=== PATIENT | male | born 1945 | race Caucasian/White ===

== ENCOUNTER 2019-11-27 17:14 | Inpatient (IN) ==
[2019-11-27 17:57] LABS: Basophils # 0.1 10*3/uL (0.0-0.2); Basophils % 0.6 % (0.0-0.8); Eosinophils % 0.2 % (0.00-10.9); Hematocrit 37.7 VOL% (42.0-52.0); Hemoglobin 11.7 GM/DL (14.0-18.0); Immature Granulocytes % 0.5 %; Immature Granulocytes Absolute 0.06 #; Mean Corpuscular Volume 84.3 FL (87-102); Mean Platelet Volume 10.8 FL (9.6-12.0); Monocytes % 14.5 % (1.7-12.7); Neutrophils % 66.2 % (38.7-73.9); Platelet Count 231 T/CUMM (130-400); Red Blood Count 4.47 MC/CUMM (3.8-5.5); Red Cell Distribution Width 15.2 % (9.3-17.3)
[2019-11-27 18:18] LABS: Albumin 2.9 G/DL (3.4-5.0); Bilirubin,Total 0.7 MG/DL (0.2-1.0); Calcium 8.7 MG/DL (8.5-10.1); Osmolality,Calculated 275.4 MOS/KG (273-304); Total Protein 8.1 G/DL (6.4-8.3)
[2019-11-27] MEDS ORDERED: FUROSEMIDE 40 MG/4 ML VIAL IV STA (18:31)
[2019-11-27] MEDS ORDERED: PIPERACILLIN/TAZOBACTAM 3,375 MG in SODIUM CHLORIDE 0.9% 100 ML IV STA (18:31)
[2019-11-27] MEDS ORDERED: methylPREDNISolone SOD SUC 125 MG/2 ML VIAL IV STA (18:31)
[2019-11-27] MEDS ORDERED: ONDANSETRON 4 MG/2 ML VIAL IV STA (18:32)
[2019-11-27 18:50] LABS: Ferritin 189.3 ng/ml (26-388); Troponin I < 0.015 NG/ML (0.00-0.045)
[2019-11-27] MEDS ORDERED: ALBUTEROL NEB SOLN 5 MG/ML 20 ML/BOTTLE CONT NEB SCH (19:00)
[2019-11-27 19:16] LABS: Apearance,Urine CLEAR (Clear); Bilirubin,Urine Negative (Negative); Blood, Urine Small mg/dL (Negative); Glucose,Urine (UA) Negative (Negative); Hyaline Casts,Urine 9 /LPF (0-3); Ketones,Urine Negative (Negative); Mucus,Urine Occasional /LPF (Occasional); Nitrite,Urine Negative (Negative); Protein,Urine Negative; RBC,Urine 14 /HPF (0-4); Squamous Epithelial Cell,Urine Occasional /HPF (0-10); Urine Color Yellow (Yellow); Urine Specific Gravity 1.014 (1.001-1.035); Urine Urobilinogen < 2.0 EU/DL (0.2-1.0); WBC,Urine 1 /HPF (0-6)
[2019-11-27] MEDS ORDERED: DOCUSATE SODIUM 100 MG CAPSULE PO PRN (20:53)
[2019-11-27] MEDS ORDERED: ONDANSETRON 4 MG/2 ML VIAL IV PRN (20:53)
[2019-11-27] MEDS ORDERED: ACETAMINOPHEN 325 MG TABLET PO PRN (20:53)
[2019-11-27] MEDS ORDERED: traMADol 50 MG TABLET PO PRN (21:04)
[2019-11-28] MEDS: BACLOFEN 10 MG TABLET PO SCH ×2 (00:28→22:18)
[2019-11-28] MEDS: levETIRAcetam 500 MG TABLET PO SCH ×3 (00:28→22:15)
[2019-11-28] MEDS: ENOXAPARIN 40 MG/0.4 ML SYRINGE SUBCUT SCH ×2 (00:28→22:17)
[2019-11-28] MEDS: DULoxetine 30 MG CAPSULE PO SCH ×3 (00:28→22:16)
[2019-11-28] MEDS: LEVOFLOXACIN INJ 750 MG in PREMIX 1 EACH IV SCH (00:28)
[2019-11-28] MEDS: GABAPENTIN 600 MG TABLET PO SCH ×4 (00:29→22:16)
[2019-11-28] MEDS: ALBUTEROL INHALER 18 GM INH SCH ×4 (00:30→19:30)
[2019-11-28 05:15] LABS: Basophils % 0.2 % (0.0-0.8); Hematocrit 35.3 VOL% (42.0-52.0); Hemoglobin 10.6 GM/DL (14.0-18.0); Immature Granulocytes % 0.2 %; Immature Granulocytes Absolute 0.01 #; Lymphocytes # 0.3 10*3/uL (1.4-4.0); Lymphocytes % 5.5 % (21.2-54.2); Mean Corpuscular Volume 85.1 FL (87-102); Monocytes % 4.1 % (1.7-12.7); Platelet Count 208 T/CUMM (130-400); Red Blood Count 4.15 MC/CUMM (3.8-5.5); Red Cell Distribution Width 14.8 % (9.3-17.3); White Blood Count 6.2 T/CUMM (4-12)
[2019-11-28 05:39] LABS: Calcium 8.6 MG/DL (8.5-10.1)
[2019-11-28] MEDS ORDERED: ERGOCALCIFEROL 50,000 UNIT CAPSULE PO SCH (09:00)
[2019-11-28] MEDS ORDERED: predniSONE 20 MG TABLET PO SCH (09:00)
[2019-11-28] MEDS ORDERED: MONTELUKAST 10 MG TABLET PO SCH (09:00)
[2019-11-28] MEDS: FUROSEMIDE 40 MG TABLET PO SCH (09:53)
[2019-11-28 10:28] LABS: % Iron Saturation 7.2 % (18-50)
[2019-11-28] MEDS: methylPREDNISolone SOD SUC 40 MG/1 ML VIAL IV SCH (16:53)
[2019-11-28] MEDS: MONTELUKAST 10 MG TABLET PO SCH (22:16)
[2019-11-29] MEDS: methylPREDNISolone SOD SUC 40 MG/1 ML VIAL IV SCH ×3 (01:55→16:36)
[2019-11-29] MEDS: ALBUTEROL INHALER 18 GM INH SCH ×4 (01:57→18:53)
[2019-11-29 04:03] LABS: Basophils % 0.1 % (0.0-0.8); Hematocrit 33.1 VOL% (42.0-52.0); Hemoglobin 10.5 GM/DL (14.0-18.0); Immature Granulocytes % 0.4 %; Immature Granulocytes Absolute 0.04 #; Lymphocytes # 0.4 10*3/uL (1.4-4.0); Lymphocytes % 4.3 % (21.2-54.2); Mean Corpuscular HGB Conc 31.7 GM/DL (32-36); Mean Corpuscular Volume 82.1 FL (87-102); Mean Platelet Volume 11.6 FL (9.6-12.0); Neutrophils % 91.2 % (38.7-73.9); Platelet Count 229 T/CUMM (130-400); Red Blood Count 4.03 MC/CUMM (3.8-5.5); Red Cell Distribution Width 14.6 % (9.3-17.3)
[2019-11-29 04:30] LABS: Calcium 8.6 MG/DL (8.5-10.1); Osmolality,Calculated 287.8 MOS/KG (273-304)
[2019-11-29 04:59] LABS: Lymphocytes 6 % (20-55); Segmented Neutrophils 90 % (50-85); Total Cells Counted 100
[2019-11-29 05:00] LABS: Hypochromasia 2+; Ovalocytes 1+; Platelet Estimate Normal
[2019-11-29] MEDS: DULoxetine 30 MG CAPSULE PO SCH ×2 (09:53→21:20)
[2019-11-29] MEDS: FUROSEMIDE 40 MG TABLET PO SCH (09:53)
[2019-11-29] MEDS: GABAPENTIN 600 MG TABLET PO SCH ×3 (09:54→21:22)
[2019-11-29] MEDS: levETIRAcetam 500 MG TABLET PO SCH ×2 (09:54→21:22)
[2019-11-29] MEDS: MONTELUKAST 10 MG TABLET PO SCH ×2 (09:55→21:22)
[2019-11-29] MEDS: LEVOFLOXACIN INJ 750 MG in PREMIX 1 EACH IV SCH (09:56)
[2019-11-29] MEDS: ENOXAPARIN 40 MG/0.4 ML SYRINGE SUBCUT SCH (21:20)
[2019-11-29] MEDS: BACLOFEN 10 MG TABLET PO SCH (21:22)
[2019-11-30] MEDS: methylPREDNISolone SOD SUC 40 MG/1 ML VIAL IV SCH ×2 (01:28→10:45)
[2019-11-30] MEDS: ALBUTEROL INHALER 18 GM INH SCH ×2 (01:28→08:44)
[2019-11-30] MEDS: DULoxetine 30 MG CAPSULE PO SCH (08:43)
[2019-11-30] MEDS: levETIRAcetam 500 MG TABLET PO SCH (08:44)
[2019-11-30] MEDS: FUROSEMIDE 40 MG TABLET PO SCH (08:44)
[2019-11-30] MEDS: GABAPENTIN 600 MG TABLET PO SCH (08:44)
[2019-11-30] MEDS: MONTELUKAST 10 MG TABLET PO SCH (08:44)
[2019-11-30 11:35] VITALS: BP 106/63
== END 2019-11-30 13:24 | disposition home or self-care (01) | DRG 190 ==
LOC: N.ED 17:14 → N.EDINP 20:52 → N.TELES 21:10 → N.2E 22:39
PROVIDERS: ADMIT Family Medicine; ATTEND Family Medicine

== ENCOUNTER 2020-03-25 20:15 | Observation (INO) ==
[2020-03-25 20:59] LABS: Basophils # 0.1 10*3/uL (0.0-0.2); Basophils % 0.4 % (0.0-0.8); Eosinophils % 0.3 % (0.00-10.9); Hematocrit 39.7 VOL% (42.0-52.0); Hemoglobin 12.5 GM/DL (14.0-18.0); Immature Granulocytes % 0.4 %; Immature Granulocytes Absolute 0.04 #; Lymphocytes # 0.8 10*3/uL (1.4-4.0); Lymphocytes % 7.2 % (21.2-54.2); Mean Corpuscular HGB Conc 31.5 GM/DL (32-36); Mean Corpuscular Volume 83.2 FL (87-102); Mean Platelet Volume 11.4 FL (9.6-12.0); Monocytes % 7.5 % (1.7-12.7); Neutrophils % 84.2 % (38.7-73.9); Platelet Count 206 T/CUMM (130-400); Red Blood Count 4.77 MC/CUMM (3.8-5.5); Red Cell Distribution Width 14.6 % (9.3-17.3); White Blood Count 11.3 T/CUMM (4-12)
[2020-03-25 21:21] LABS: Albumin 3.3 G/DL (3.4-5.0); Bilirubin,Total 0.8 MG/DL (0.2-1.0); Calcium 8.8 MG/DL (8.5-10.1); Total Protein 8.2 G/DL (6.4-8.3)
[2020-03-25] MEDS ORDERED: ALBUTEROL 2.5 MG/3 ML NEB RESP TX STA (21:25)
[2020-03-25] MEDS ORDERED: ALBUTEROL/IPRATROPIUM 3 ML NEB RESP TX STA (21:25)
[2020-03-25] MEDS ORDERED: LEVOFLOXACIN INJ 750 MG in PREMIX 1 EACH IV STA (21:58)
[2020-03-25] MEDS ORDERED: DEXTROSE 50% 25 GM/50 ML VIAL IV PRN (22:33)
[2020-03-25] MEDS ORDERED: ACETAMINOPHEN 325 MG TABLET PO PRN (22:33)
[2020-03-25] MEDS ORDERED: ONDANSETRON 4 MG/2 ML VIAL IV PRN (22:33)
[2020-03-25] MEDS ORDERED: GLUCAGON 1 MG VIAL IM PRN (22:33)
[2020-03-25] MEDS ORDERED: guaiFENesin/DM ER 600-30 MG TABLET PO PRN (22:33)
[2020-03-25] MEDS ORDERED: MORPHINE 4 MG/1 ML VIAL IV PRN (22:33)
[2020-03-26] MEDS ORDERED: ALBUTEROL/IPRATROPIUM 3 ML NEB RESP TX SCH (01:00)
[2020-03-26] MEDS: PIPERACILLIN/TAZOBACTAM 3,375 MG in SODIUM CHLORIDE 0.9% 100 ML IV SCH ×4 (01:28→22:46)
[2020-03-26] MEDS ORDERED: ALBUTEROL/IPRATROPIUM 3 ML NEB RESP TX PRN (01:40)
[2020-03-26] MEDS ORDERED: methylPREDNISolone SOD SUC 40 MG/1 ML VIAL IV SCH (02:00)
[2020-03-26 07:29] LABS: Basophils % 0.5 % (0.0-0.8); Eosinophils % 0.2 % (0.00-10.9); Hematocrit 35.7 VOL% (42.0-52.0); Hemoglobin 11.2 GM/DL (14.0-18.0); Immature Granulocytes % 0.4 %; Immature Granulocytes Absolute 0.03 #; Lymphocytes # 0.5 10*3/uL (1.4-4.0); Lymphocytes % 6.4 % (21.2-54.2); Mean Corpuscular HGB Conc 31.4 GM/DL (32-36); Mean Corpuscular Volume 82.4 FL (87-102); Mean Platelet Volume 11.2 FL (9.6-12.0); Monocytes % 4.2 % (1.7-12.7); Neutrophils % 88.3 % (38.7-73.9); Platelet Count 178 T/CUMM (130-400); Red Blood Count 4.33 MC/CUMM (3.8-5.5); Red Cell Distribution Width 14.5 % (9.3-17.3); White Blood Count 8.3 T/CUMM (4-12)
[2020-03-26] MEDS ORDERED: traMADol 50 MG TABLET PO PRN (09:25)
[2020-03-26] MEDS ORDERED: ERGOCALCIFEROL 50,000 UNIT CAPSULE PO SCH (09:30)
[2020-03-26] MEDS: BUDESONIDE/FORMOTEROL 80-4.5 INHALER 6.9 GM INH SCH ×2 (09:33→21:21)
[2020-03-26] MEDS: DULoxetine 30 MG CAPSULE PO SCH ×2 (10:22→21:21)
[2020-03-26] MEDS: MONTELUKAST 10 MG TABLET PO SCH (10:22)
[2020-03-26] MEDS: FUROSEMIDE 40 MG TABLET PO SCH (10:22)
[2020-03-26] MEDS: levETIRAcetam 500 MG TABLET PO SCH ×2 (10:22→21:21)
[2020-03-26] MEDS: GABAPENTIN 100 MG CAPSULE PO SCH ×3 (12:03→21:21)
[2020-03-26] MEDS: BACLOFEN 10 MG TABLET PO SCH (21:21)
[2020-03-27 05:57] LABS: Basophils % 0.4 % (0.0-0.8); Eosinophils % 0.3 % (0.00-10.9); Hematocrit 35.1 VOL% (42.0-52.0); Hemoglobin 10.9 GM/DL (14.0-18.0); Immature Granulocytes % 0.3 %; Immature Granulocytes Absolute 0.02 #; Lymphocytes # 1.1 10*3/uL (1.4-4.0); Lymphocytes % 15.5 % (21.2-54.2); Mean Corpuscular HGB Conc 31.1 GM/DL (32-36); Mean Corpuscular Volume 82.8 FL (87-102); Monocytes % 13.9 % (1.7-12.7); Neutrophils % 69.6 % (38.7-73.9); Platelet Count 165 T/CUMM (130-400); Red Blood Count 4.24 MC/CUMM (3.8-5.5); Red Cell Distribution Width 14.6 % (9.3-17.3); White Blood Count 7.4 T/CUMM (4-12)
[2020-03-27] MEDS: PIPERACILLIN/TAZOBACTAM 3,375 MG in SODIUM CHLORIDE 0.9% 100 ML IV SCH ×2 (06:06→14:26)
[2020-03-27 06:22] LABS: Calcium 8.7 MG/DL (8.5-10.1)
[2020-03-27] MEDS ORDERED: POTASSIUM CHLORIDE 20 MEQ TABLET PO ONE (07:39)
[2020-03-27] MEDS: MONTELUKAST 10 MG TABLET PO SCH (09:03)
[2020-03-27] MEDS: FUROSEMIDE 40 MG TABLET PO SCH (09:04)
[2020-03-27] MEDS: levETIRAcetam 500 MG TABLET PO SCH ×2 (09:04→22:03)
[2020-03-27] MEDS: DULoxetine 30 MG CAPSULE PO SCH ×2 (09:04→22:03)
[2020-03-27] MEDS: BUDESONIDE/FORMOTEROL 80-4.5 INHALER 6.9 GM INH SCH ×2 (09:04→22:03)
[2020-03-27] MEDS: GABAPENTIN 100 MG CAPSULE PO SCH ×3 (09:04→22:04)
[2020-03-27] MEDS: methylPREDNISolone SOD SUC 40 MG/1 ML VIAL IV SCH (09:56)
[2020-03-27] MEDS: POTASSIUM CHLORIDE 10 MEQ TABLET PO SCH ×2 (10:26→22:03)
[2020-03-27] MEDS: BACLOFEN 10 MG TABLET PO SCH (22:04)
[2020-03-28] MEDS: PIPERACILLIN/TAZOBACTAM 3,375 MG in SODIUM CHLORIDE 0.9% 100 ML IV SCH ×2 (00:12→06:04)
[2020-03-28 05:38] LABS: Basophils # 0.1 10*3/uL (0.0-0.2); Basophils % 0.6 % (0.0-0.8); Eosinophils % 0.4 % (0.00-10.9); Hematocrit 38.1 VOL% (42.0-52.0); Hemoglobin 11.9 GM/DL (14.0-18.0); Immature Granulocytes % 0.5 %; Immature Granulocytes Absolute 0.04 #; Lymphocytes # 1.7 10*3/uL (1.4-4.0); Lymphocytes % 20.2 % (21.2-54.2); Mean Corpuscular HGB Conc 31.2 GM/DL (32-36); Mean Corpuscular Volume 83.2 FL (87-102); Mean Platelet Volume 11.1 FL (9.6-12.0); Monocytes % 12.8 % (1.7-12.7); Neutrophils % 65.5 % (38.7-73.9); Platelet Count 197 T/CUMM (130-400); Red Blood Count 4.58 MC/CUMM (3.8-5.5); Red Cell Distribution Width 14.6 % (9.3-17.3); White Blood Count 8.5 T/CUMM (4-12)
[2020-03-28 05:55] LABS: Calcium 8.7 MG/DL (8.5-10.1); Osmolality,Calculated 287.3 MOS/KG (273-304)
[2020-03-28] MEDS: DULoxetine 30 MG CAPSULE PO SCH (09:32)
[2020-03-28] MEDS: MONTELUKAST 10 MG TABLET PO SCH (09:33)
[2020-03-28] MEDS: BUDESONIDE/FORMOTEROL 80-4.5 INHALER 6.9 GM INH SCH (09:33)
[2020-03-28] MEDS: POTASSIUM CHLORIDE 10 MEQ TABLET PO SCH (09:33)
[2020-03-28] MEDS: methylPREDNISolone SOD SUC 40 MG/1 ML VIAL IV SCH (09:33)
[2020-03-28] MEDS: GABAPENTIN 100 MG CAPSULE PO SCH (09:33)
[2020-03-28] MEDS: levETIRAcetam 500 MG TABLET PO SCH (09:33)
[2020-03-28] MEDS: FUROSEMIDE 40 MG TABLET PO SCH (09:33)
[2020-03-28 12:03] VITALS: BP 139/87
== END 2020-03-28 12:55 | disposition home or self-care (01) ==
LOC: N.ED 20:15 → N.EDINP 20:15 → N.TELES 23:02
PROVIDERS: ADMIT Internal Medicine Geriatric Medicine; ATTEND Internal Medicine Geriatric Medicine

== ENCOUNTER 2020-09-20 22:25 | Inpatient (IN) ==
[2020-09-20 22:53] LABS: Basophils % 0.5 % (0.0-0.8); Eosinophils % 0.4 % (0.00-10.9); Hematocrit 38.1 VOL% (42.0-52.0); Hemoglobin 11.8 GM/DL (14.0-18.0); Immature Granulocytes % 0.6 %; Immature Granulocytes Absolute 0.05 #; Lymphocytes # 0.6 10*3/uL (1.4-4.0); Lymphocytes % 7.3 % (21.2-54.2); Mean Corpuscular Volume 87.2 FL (87-102); Mean Platelet Volume 11.5 FL (9.6-12.0); Monocytes % 11.8 % (1.7-12.7); Neutrophils % 79.4 % (38.7-73.9); Platelet Count 165 T/CUMM (130-400); Red Blood Count 4.37 MC/CUMM (3.8-5.5); Red Cell Distribution Width 15.5 % (9.3-17.3); White Blood Count 8.6 T/CUMM (4-12)
[2020-09-20 23:16] LABS: Albumin 2.5 G/DL (3.4-5.0); Bilirubin,Total 0.7 MG/DL (0.2-1.0); Calcium 8.4 MG/DL (8.5-10.1); Osmolality,Calculated 292.4 MOS/KG (273-304); Potassium 3.6 MMOL/L (3.5-5.1); Total Protein 6.6 G/DL (6.4-8.2)
[2020-09-21] MEDS ORDERED: PIPERACILLIN/TAZOBACTAM 3,375 MG in SODIUM CHLORIDE 0.9% 100 ML IV STA (00:11)
[2020-09-21] MEDS ORDERED: SODIUM CHLORIDE 0.9% 1,000 ML IV STA (00:23)
[2020-09-21] MEDS ORDERED: LEVOFLOXACIN INJ 750 MG/150 ML PREMIX IV SCH ×2 (02:30→03:30)
[2020-09-21] MEDS ORDERED: DEXTROSE 50% 25 GM/50 ML VIAL IV PRN (02:32)
[2020-09-21] MEDS ORDERED: ACETAMINOPHEN 325 MG TABLET PO PRN (02:32)
[2020-09-21] MEDS ORDERED: DOCUSATE SODIUM 100 MG CAPSULE PO PRN (02:32)
[2020-09-21] MEDS ORDERED: GLUCAGON 1 MG VIAL IM PRN (02:32)
[2020-09-21] MEDS ORDERED: ONDANSETRON 4 MG/2 ML VIAL IV PRN (02:32)
[2020-09-21] MEDS ORDERED: traMADol 50 MG TABLET PO PRN (02:55)
[2020-09-21] MEDS ORDERED: SODIUM CHLORIDE 0.9% 1,000 ML IV SCH (03:00)
[2020-09-21 03:11] LABS: Basophils % 0.5 % (0.0-0.8); Eosinophils % 0.5 % (0.00-10.9); Hematocrit 36.7 VOL% (42.0-52.0); Hemoglobin 11.3 GM/DL (14.0-18.0); Immature Granulocytes % 0.5 %; Immature Granulocytes Absolute 0.04 #; Lymphocytes # 1.1 10*3/uL (1.4-4.0); Mean Corpuscular HGB Conc 30.8 GM/DL (32-36); Mean Corpuscular Volume 88.2 FL (87-102); Mean Platelet Volume 10.8 FL (9.6-12.0); Monocytes % 14.8 % (1.7-12.7); Neutrophils % 70.7 % (38.7-73.9); Platelet Count 149 T/CUMM (130-400); Red Blood Count 4.16 MC/CUMM (3.8-5.5); Red Cell Distribution Width 15.5 % (9.3-17.3); White Blood Count 8.1 T/CUMM (4-12)
[2020-09-21] MEDS: ENOXAPARIN 30 MG/0.3 ML SYRINGE SUBCUT SCH (03:21)
[2020-09-21 03:39] LABS: Albumin 2.4 G/DL (3.4-5.0); Bilirubin,Total 0.7 MG/DL (0.2-1.0); Calcium 8.3 MG/DL (8.5-10.1); Osmolality,Calculated 291.3 MOS/KG (273-304); Potassium 3.3 MMOL/L (3.5-5.1); Total Protein 6.3 G/DL (6.4-8.2)
[2020-09-21 05:43] LABS: Microcytosis 1+
[2020-09-21 05:44] LABS: Hypochromasia Slight; Platelet Estimate Normal; Polychromasia Slight
[2020-09-21 05:45] LABS: Ovalocytes Few
[2020-09-21] MEDS: ALBUTEROL/IPRATROPIUM 3 ML NEB RESP TX SCH ×3 (07:01→19:57)
[2020-09-21] MEDS: PIPERACILLIN/TAZOBACTAM 3,375 MG in SODIUM CHLORIDE 0.9% 100 ML IV SCH ×2 (09:01→15:27)
[2020-09-21] MEDS: MONTELUKAST 10 MG TABLET PO SCH (09:02)
[2020-09-21] MEDS: levETIRAcetam 500 MG TABLET PO SCH ×2 (09:02→21:25)
[2020-09-21] MEDS: GABAPENTIN 600 MG TABLET PO SCH ×3 (09:02→21:25)
[2020-09-21] MEDS: ERGOCALCIFEROL 50,000 UNIT CAPSULE PO SCH (09:03)
[2020-09-21] MEDS: DULoxetine 30 MG CAPSULE PO SCH ×2 (09:03→21:25)
[2020-09-21] MEDS: methylPREDNISolone 4 MG TABLET PO SCH (09:03)
[2020-09-21] MEDS: NON-FORMULARY MEDICATION (Budesonide-Glycopyr-Formoterol [Breztri Aerosphere] 160-9-4.8 mc INH SCH ×2 (10:05→21:30)
[2020-09-21] MEDS: BACLOFEN 10 MG TABLET PO SCH (21:25)
[2020-09-22] MEDS: PIPERACILLIN/TAZOBACTAM 3,375 MG in SODIUM CHLORIDE 0.9% 100 ML IV SCH ×3 (00:27→16:36)
[2020-09-22] MEDS: ALBUTEROL/IPRATROPIUM 3 ML NEB RESP TX SCH ×4 (01:36→19:38)
[2020-09-22] MEDS: ENOXAPARIN 30 MG/0.3 ML SYRINGE SUBCUT SCH (03:57)
[2020-09-22 06:35] LABS: Basophils % 0.2 % (0.0-0.8); Eosinophils % 0.1 % (0.00-10.9); Hemoglobin 11.2 GM/DL (14.0-18.0); Immature Granulocytes % 0.5 %; Immature Granulocytes Absolute 0.04 #; Lymphocytes # 0.5 10*3/uL (1.4-4.0); Lymphocytes % 5.6 % (21.2-54.2); Mean Corpuscular HGB Conc 30.3 GM/DL (32-36); Mean Corpuscular Volume 90.2 FL (87-102); Mean Platelet Volume 11.9 FL (9.6-12.0); Monocytes % 12.5 % (1.7-12.7); Neutrophils % 81.1 % (38.7-73.9); Platelet Count 155 T/CUMM (130-400); Red Cell Distribution Width 15.3 % (9.3-17.3); White Blood Count 8.2 T/CUMM (4-12)
[2020-09-22 06:55] LABS: Hypochromasia 1+; Lymphocytes 7 % (20-55); Microcytosis 1+; Platelet Estimate Adequate; Segmented Neutrophils 85 % (50-85); Total Cells Counted 100
[2020-09-22 07:08] LABS: Albumin 2.4 G/DL (3.4-5.0); Bilirubin,Total 0.7 MG/DL (0.2-1.0); Calcium 8.6 MG/DL (8.5-10.1); Potassium 3.6 MMOL/L (3.5-5.1); Total Protein 6.5 G/DL (6.4-8.2)
[2020-09-22] MEDS: DULoxetine 30 MG CAPSULE PO SCH ×2 (09:34→20:16)
[2020-09-22] MEDS: NON-FORMULARY MEDICATION (Budesonide-Glycopyr-Formoterol [Breztri Aerosphere] 160-9-4.8 mc INH SCH ×2 (09:34→20:17)
[2020-09-22] MEDS: MONTELUKAST 10 MG TABLET PO SCH (09:35)
[2020-09-22] MEDS: GABAPENTIN 600 MG TABLET PO SCH ×3 (09:35→20:16)
[2020-09-22] MEDS: levETIRAcetam 500 MG TABLET PO SCH ×2 (09:35→20:16)
[2020-09-22] MEDS: methylPREDNISolone 4 MG TABLET PO SCH (09:38)
[2020-09-22] MEDS: DORNASE ALFA 2.5 MG/2.5 ML VIAL RESP TX SCH ×2 (13:42→19:38)
[2020-09-22] MEDS: BENZOCAINE/MENTHOL LOZENGE 18/BOX PO PRN (16:36)
[2020-09-22] MEDS: BACLOFEN 10 MG TABLET PO SCH (20:16)
[2020-09-23] MEDS: PIPERACILLIN/TAZOBACTAM 3,375 MG in SODIUM CHLORIDE 0.9% 100 ML IV SCH ×3 (00:30→16:20)
[2020-09-23] MEDS: ALBUTEROL/IPRATROPIUM 3 ML NEB RESP TX SCH ×4 (00:40→22:44)
[2020-09-23] MEDS: ENOXAPARIN 30 MG/0.3 ML SYRINGE SUBCUT SCH (03:04)
[2020-09-23 06:57] LABS: Basophils % 0.3 % (0.0-0.8); Eosinophils % 0.3 % (0.00-10.9); Hematocrit 35.5 VOL% (42.0-52.0); Hemoglobin 10.7 GM/DL (14.0-18.0); Immature Granulocytes % 0.8 %; Immature Granulocytes Absolute 0.06 #; Lymphocytes # 0.6 10*3/uL (1.4-4.0); Lymphocytes % 7.4 % (21.2-54.2); Mean Corpuscular HGB Conc 30.1 GM/DL (32-36); Mean Corpuscular Volume 90.1 FL (87-102); Mean Platelet Volume 11.6 FL (9.6-12.0); Monocytes % 12.4 % (1.7-12.7); Neutrophils % 78.8 % (38.7-73.9); Platelet Count 156 T/CUMM (130-400); Red Blood Count 3.94 MC/CUMM (3.8-5.5); Red Cell Distribution Width 15.5 % (9.3-17.3); White Blood Count 7.4 T/CUMM (4-12)
[2020-09-23] MEDS: DORNASE ALFA 2.5 MG/2.5 ML VIAL RESP TX SCH ×2 (06:58→22:44)
[2020-09-23 07:37] LABS: Albumin 2.5 G/DL (3.4-5.0); Bilirubin,Total 2.1 MG/DL (0.2-1.0); Calcium 8.6 MG/DL (8.5-10.1); Osmolality,Calculated 290.4 MOS/KG (273-304); Potassium 3.9 MMOL/L (3.5-5.1); Total Protein 6.4 G/DL (6.4-8.2)
[2020-09-23] MEDS: methylPREDNISolone 4 MG TABLET PO SCH (08:23)
[2020-09-23] MEDS: GABAPENTIN 600 MG TABLET PO SCH ×3 (08:23→20:08)
[2020-09-23] MEDS: DULoxetine 30 MG CAPSULE PO SCH ×2 (08:23→20:08)
[2020-09-23] MEDS: NON-FORMULARY MEDICATION (Budesonide-Glycopyr-Formoterol [Breztri Aerosphere] 160-9-4.8 mc INH SCH ×2 (08:23→20:08)
[2020-09-23] MEDS: levETIRAcetam 500 MG TABLET PO SCH ×2 (08:23→20:08)
[2020-09-23] MEDS: MONTELUKAST 10 MG TABLET PO SCH (08:23)
[2020-09-23] MEDS: BENZOCAINE/MENTHOL LOZENGE 18/BOX PO PRN (08:24)
[2020-09-23] MEDS ORDERED: LACTATED RINGERS 1,000 ML IV SCH (14:30)
[2020-09-23] MEDS: BACLOFEN 10 MG TABLET PO SCH (20:08)
[2020-09-24] MEDS: PIPERACILLIN/TAZOBACTAM 3,375 MG in SODIUM CHLORIDE 0.9% 100 ML IV SCH ×3 (00:58→15:57)
[2020-09-24] MEDS: ENOXAPARIN 30 MG/0.3 ML SYRINGE SUBCUT SCH (03:32)
[2020-09-24] MEDS: ALBUTEROL/IPRATROPIUM 3 ML NEB RESP TX SCH ×4 (03:55→19:28)
[2020-09-24 05:52] LABS: Basophils % 0.6 % (0.0-0.8); Eosinophils # 0.1 10*3/uL (0.0-0.87); Eosinophils % 0.7 % (0.00-10.9); Hematocrit 33.8 VOL% (42.0-52.0); Hemoglobin 10.5 GM/DL (14.0-18.0); Immature Granulocytes % 0.7 %; Immature Granulocytes Absolute 0.05 #; Lymphocytes # 0.7 10*3/uL (1.4-4.0); Lymphocytes % 9.4 % (21.2-54.2); Mean Corpuscular HGB Conc 31.1 GM/DL (32-36); Mean Corpuscular Volume 88.7 FL (87-102); Mean Platelet Volume 11.6 FL (9.6-12.0); Monocytes % 14.5 % (1.7-12.7); Neutrophils % 74.1 % (38.7-73.9); Platelet Count 157 T/CUMM (130-400); Red Blood Count 3.81 MC/CUMM (3.8-5.5); Red Cell Distribution Width 15.5 % (9.3-17.3); White Blood Count 7.2 T/CUMM (4-12)
[2020-09-24 06:26] LABS: Hypochromasia 1+; Lymphocytes 13 % (20-55); Microcytosis 1+; Platelet Estimate Adequate; Segmented Neutrophils 75 % (50-85); Total Cells Counted 100
[2020-09-24] MEDS: DORNASE ALFA 2.5 MG/2.5 ML VIAL RESP TX SCH ×2 (07:12→19:28)
[2020-09-24 08:22] LABS: Calcium 8.5 MG/DL (8.5-10.1); Osmolality,Calculated 291.4 MOS/KG (273-304); Potassium 4.4 MMOL/L (3.5-5.1)
[2020-09-24] MEDS: levETIRAcetam 500 MG TABLET PO SCH ×2 (09:10→21:08)
[2020-09-24] MEDS: GABAPENTIN 600 MG TABLET PO SCH ×3 (09:10→21:08)
[2020-09-24] MEDS: MONTELUKAST 10 MG TABLET PO SCH (09:10)
[2020-09-24] MEDS: methylPREDNISolone 4 MG TABLET PO SCH (09:10)
[2020-09-24] MEDS: DULoxetine 30 MG CAPSULE PO SCH ×2 (09:10→21:08)
[2020-09-24] MEDS: NON-FORMULARY MEDICATION (Budesonide-Glycopyr-Formoterol [Breztri Aerosphere] 160-9-4.8 mc INH SCH ×2 (12:18→21:09)
[2020-09-24] MEDS: BACLOFEN 10 MG TABLET PO SCH (21:08)
[2020-09-25] MEDS: PIPERACILLIN/TAZOBACTAM 3,375 MG in SODIUM CHLORIDE 0.9% 100 ML IV SCH ×4 (00:25→23:47)
[2020-09-25] MEDS: ALBUTEROL/IPRATROPIUM 3 ML NEB RESP TX SCH ×2 (02:24→07:10)
[2020-09-25] MEDS: ENOXAPARIN 30 MG/0.3 ML SYRINGE SUBCUT SCH (02:50)
[2020-09-25 05:59] LABS: Basophils # 0.1 10*3/uL (0.0-0.2); Basophils % 0.8 % (0.0-0.8); Eosinophils % 0.4 % (0.00-10.9); Hematocrit 37.2 VOL% (42.0-52.0); Hemoglobin 11.1 GM/DL (14.0-18.0); Immature Granulocytes Absolute 0.07 #; Lymphocytes # 0.7 10*3/uL (1.4-4.0); Lymphocytes % 9.8 % (21.2-54.2); Mean Corpuscular HGB Conc 29.8 GM/DL (32-36); Mean Platelet Volume 11.5 FL (9.6-12.0); Monocytes % 12.7 % (1.7-12.7); Neutrophils % 75.3 % (38.7-73.9); Platelet Count 159 T/CUMM (130-400); Red Blood Count 4.18 MC/CUMM (3.8-5.5); Red Cell Distribution Width 15.5 % (9.3-17.3); White Blood Count 7.2 T/CUMM (4-12)
[2020-09-25 06:17] LABS: Calcium 8.6 MG/DL (8.5-10.1); Osmolality,Calculated 297.1 MOS/KG (273-304); Potassium 4.2 MMOL/L (3.5-5.1)
[2020-09-25] MEDS: DORNASE ALFA 2.5 MG/2.5 ML VIAL RESP TX SCH ×2 (08:04→19:31)
[2020-09-25] MEDS: DULoxetine 30 MG CAPSULE PO SCH ×2 (09:54→21:14)
[2020-09-25] MEDS: levETIRAcetam 500 MG TABLET PO SCH ×2 (09:54→21:14)
[2020-09-25] MEDS: GABAPENTIN 600 MG TABLET PO SCH ×3 (09:55→21:14)
[2020-09-25] MEDS: methylPREDNISolone 4 MG TABLET PO SCH (09:55)
[2020-09-25] MEDS: MONTELUKAST 10 MG TABLET PO SCH (09:55)
[2020-09-25] MEDS: IPRATROPIUM 500 MCG/2.5 ML NEB RESP TX SCH ×2 (12:00→19:31)
[2020-09-25] MEDS: NON-FORMULARY MEDICATION (Budesonide-Glycopyr-Formoterol [Breztri Aerosphere] 160-9-4.8 mc INH SCH ×2 (16:50→21:25)
[2020-09-25] MEDS: BACLOFEN 10 MG TABLET PO SCH (21:14)
[2020-09-26] MEDS: IPRATROPIUM 500 MCG/2.5 ML NEB RESP TX SCH ×4 (00:02→20:16)
[2020-09-26] MEDS: ENOXAPARIN 30 MG/0.3 ML SYRINGE SUBCUT SCH (02:14)
[2020-09-26 07:13] LABS: Calcium 8.6 MG/DL (8.5-10.1); Osmolality,Calculated 295.3 MOS/KG (273-304); Potassium 4.6 MMOL/L (3.5-5.1)
[2020-09-26] MEDS: DORNASE ALFA 2.5 MG/2.5 ML VIAL RESP TX SCH ×2 (07:30→20:16)
[2020-09-26] MEDS: PIPERACILLIN/TAZOBACTAM 3,375 MG in SODIUM CHLORIDE 0.9% 100 ML IV SCH (08:08)
[2020-09-26 10:47] LABS: ABG Base Excess -1.9 MMOL/L (-2.5-2.5); ABG HCO3 22.7 MMOL/L (20-26); ABG Oxygen Saturation 91.9 % (95-100); ABG PCO2 49.2 MM HG (35-48); ABG PH 7.311 (7.35-7.45); ABG TCO2 22.4 MMOL/L (23-27); Allen Test Positive
[2020-09-26 11:35] LABS: Albumin 2.5 G/DL (3.4-5.0); Bilirubin,Direct 0.36 MG/DL (0.0-0.20); Bilirubin,Indirect 0.5 MG/DL (0.0-1.0); Bilirubin,Total 0.9 MG/DL (0.2-1.0); Total Protein 6.7 G/DL (6.4-8.2)
[2020-09-26] MEDS: TAMSULOSIN 0.4 MG CAPSULE PO SCH (12:00)
[2020-09-26] MEDS: GABAPENTIN 300 MG CAPSULE PO SCH ×3 (12:00→20:15)
[2020-09-26] MEDS: MONTELUKAST 10 MG TABLET PO SCH (12:01)
[2020-09-26] MEDS: methylPREDNISolone 4 MG TABLET PO SCH (12:01)
[2020-09-26] MEDS: DULoxetine 30 MG CAPSULE PO SCH ×2 (12:01→20:16)
[2020-09-26] MEDS: MEROPENEM 500 MG in SODIUM CHLORIDE 0.9% 100 ML IV SCH ×2 (12:03→18:18)
[2020-09-26] MEDS: levETIRAcetam 500 MG TABLET PO SCH (12:21)
[2020-09-26] MEDS: GABAPENTIN 600 MG TABLET PO SCH (12:21)
[2020-09-26] MEDS: NON-FORMULARY MEDICATION (Budesonide-Glycopyr-Formoterol [Breztri Aerosphere] 160-9-4.8 mc INH SCH ×2 (13:51→20:21)
[2020-09-26] MEDS ORDERED: GABAPENTIN 600 MG TABLET PO SCH (15:00)
[2020-09-26] MEDS: levETIRAcetam 250 MG TABLET PO SCH (20:15)
[2020-09-27] MEDS: IPRATROPIUM 500 MCG/2.5 ML NEB RESP TX SCH ×4 (01:48→20:30)
[2020-09-27] MEDS: MEROPENEM 500 MG in SODIUM CHLORIDE 0.9% 100 ML IV SCH ×3 (02:12→18:14)
[2020-09-27] MEDS: ENOXAPARIN 30 MG/0.3 ML SYRINGE SUBCUT SCH (02:12)
[2020-09-27 05:27] LABS: Basophils # 0.1 10*3/uL (0.0-0.2); Basophils % 0.8 % (0.0-0.8); Eosinophils % 0.4 % (0.00-10.9); Hematocrit 35.3 VOL% (42.0-52.0); Hemoglobin 10.8 GM/DL (14.0-18.0); Immature Granulocytes % 1.8 %; Immature Granulocytes Absolute 0.13 #; Lymphocytes # 0.6 10*3/uL (1.4-4.0); Lymphocytes % 8.3 % (21.2-54.2); Mean Corpuscular HGB Conc 30.6 GM/DL (32-36); Mean Platelet Volume 11.1 FL (9.6-12.0); Monocytes % 12.3 % (1.7-12.7); Neutrophils % 76.4 % (38.7-73.9); Platelet Count 150 T/CUMM (130-400); Red Blood Count 4.01 MC/CUMM (3.8-5.5); Red Cell Distribution Width 15.7 % (9.3-17.3); White Blood Count 7.2 T/CUMM (4-12)
[2020-09-27 05:46] LABS: Calcium 8.6 MG/DL (8.5-10.1); Osmolality,Calculated 297.4 MOS/KG (273-304); Potassium 4.6 MMOL/L (3.5-5.1)
[2020-09-27] MEDS: DORNASE ALFA 2.5 MG/2.5 ML VIAL RESP TX SCH ×2 (07:58→20:30)
[2020-09-27] MEDS: levETIRAcetam 250 MG TABLET PO SCH ×2 (09:18→20:07)
[2020-09-27] MEDS: methylPREDNISolone 4 MG TABLET PO SCH (09:18)
[2020-09-27] MEDS: DULoxetine 30 MG CAPSULE PO SCH ×2 (09:18→20:07)
[2020-09-27] MEDS: MONTELUKAST 10 MG TABLET PO SCH (09:19)
[2020-09-27] MEDS: NON-FORMULARY MEDICATION (Budesonide-Glycopyr-Formoterol [Breztri Aerosphere] 160-9-4.8 mc INH SCH ×2 (09:19→20:07)
[2020-09-27] MEDS: GABAPENTIN 300 MG CAPSULE PO SCH ×3 (09:19→20:07)
[2020-09-27] MEDS: TAMSULOSIN 0.4 MG CAPSULE PO SCH (09:19)
[2020-09-28] MEDS: IPRATROPIUM 500 MCG/2.5 ML NEB RESP TX SCH ×4 (01:10→20:00)
[2020-09-28] MEDS: ENOXAPARIN 30 MG/0.3 ML SYRINGE SUBCUT SCH (02:02)
[2020-09-28] MEDS: MEROPENEM 500 MG in SODIUM CHLORIDE 0.9% 100 ML IV SCH ×3 (02:02→17:49)
[2020-09-28 06:11] LABS: Basophils % 0.3 % (0.0-0.8); Eosinophils % 0.1 % (0.00-10.9); Hemoglobin 11.2 GM/DL (14.0-18.0); Immature Granulocytes % 1.2 %; Immature Granulocytes Absolute 0.09 #; Lymphocytes # 0.5 10*3/uL (1.4-4.0); Lymphocytes % 6.8 % (21.2-54.2); Mean Corpuscular HGB Conc 31.1 GM/DL (32-36); Mean Corpuscular Volume 86.7 FL (87-102); Mean Platelet Volume 11.4 FL (9.6-12.0); Monocytes % 12.4 % (1.7-12.7); Neutrophils % 79.2 % (38.7-73.9); Platelet Count 161 T/CUMM (130-400); Red Blood Count 4.15 MC/CUMM (3.8-5.5); Red Cell Distribution Width 15.8 % (9.3-17.3); White Blood Count 7.7 T/CUMM (4-12)
[2020-09-28 06:17] LABS: Calcium 8.7 MG/DL (8.5-10.1); Osmolality,Calculated 303.4 MOS/KG (273-304); Potassium 4.5 MMOL/L (3.5-5.1)
[2020-09-28] MEDS: DORNASE ALFA 2.5 MG/2.5 ML VIAL RESP TX SCH ×2 (08:42→20:10)
[2020-09-28] MEDS: MONTELUKAST 10 MG TABLET PO SCH (08:54)
[2020-09-28] MEDS: levETIRAcetam 250 MG TABLET PO SCH ×2 (08:54→20:09)
[2020-09-28] MEDS: ERGOCALCIFEROL 50,000 UNIT CAPSULE PO SCH (08:54)
[2020-09-28] MEDS: DULoxetine 30 MG CAPSULE PO SCH ×2 (08:54→20:08)
[2020-09-28] MEDS: GABAPENTIN 300 MG CAPSULE PO SCH ×3 (08:54→20:08)
[2020-09-28] MEDS: methylPREDNISolone 4 MG TABLET PO SCH (08:54)
[2020-09-28] MEDS: TAMSULOSIN 0.4 MG CAPSULE PO SCH (08:54)
[2020-09-28] MEDS: NON-FORMULARY MEDICATION (Budesonide-Glycopyr-Formoterol [Breztri Aerosphere] 160-9-4.8 mc INH SCH ×2 (08:57→20:08)
[2020-09-29] MEDS: ENOXAPARIN 30 MG/0.3 ML SYRINGE SUBCUT SCH (02:42)
[2020-09-29] MEDS: MEROPENEM 500 MG in SODIUM CHLORIDE 0.9% 100 ML IV SCH ×3 (02:42→21:11)
[2020-09-29 05:09] LABS: Basophils % 0.4 % (0.0-0.8); Eosinophils % 0.3 % (0.00-10.9); Hematocrit 37.3 VOL% (42.0-52.0); Hemoglobin 11.5 GM/DL (14.0-18.0); Immature Granulocytes % 1.7 %; Immature Granulocytes Absolute 0.13 #; Lymphocytes # 0.6 10*3/uL (1.4-4.0); Lymphocytes % 7.8 % (21.2-54.2); Mean Corpuscular HGB Conc 30.8 GM/DL (32-36); Mean Corpuscular Volume 86.9 FL (87-102); Mean Platelet Volume 10.7 FL (9.6-12.0); Monocytes % 12.4 % (1.7-12.7); Neutrophils % 77.4 % (38.7-73.9); Platelet Count 155 T/CUMM (130-400); Red Blood Count 4.29 MC/CUMM (3.8-5.5); Red Cell Distribution Width 15.8 % (9.3-17.3); White Blood Count 7.7 T/CUMM (4-12)
[2020-09-29 05:24] LABS: Calcium 8.7 MG/DL (8.5-10.1); Osmolality,Calculated 305.4 MOS/KG (273-304); Potassium 4.6 MMOL/L (3.5-5.1)
[2020-09-29] MEDS: IPRATROPIUM 500 MCG/2.5 ML NEB RESP TX SCH ×4 (06:08→19:26)
[2020-09-29] MEDS: DORNASE ALFA 2.5 MG/2.5 ML VIAL RESP TX SCH ×2 (07:47→19:26)
[2020-09-29] MEDS: DULoxetine 30 MG CAPSULE PO SCH ×2 (09:22→21:08)
[2020-09-29] MEDS: methylPREDNISolone 4 MG TABLET PO SCH (09:22)
[2020-09-29] MEDS: levETIRAcetam 250 MG TABLET PO SCH ×2 (09:22→21:08)
[2020-09-29] MEDS: TAMSULOSIN 0.4 MG CAPSULE PO SCH (09:22)
[2020-09-29] MEDS: MONTELUKAST 10 MG TABLET PO SCH (09:22)
[2020-09-29] MEDS: GABAPENTIN 300 MG CAPSULE PO SCH ×3 (09:26→21:07)
[2020-09-29] MEDS: NON-FORMULARY MEDICATION (Budesonide-Glycopyr-Formoterol [Breztri Aerosphere] 160-9-4.8 mc INH SCH (09:30)
[2020-09-29 17:34] LABS: Bilirubin,Urine Negative (Negative); Blood, Urine Large mg/dL (Negative); Glucose,Urine (UA) Negative (Negative); Ketones,Urine Negative (Negative); Mucus,Urine Occasional /LPF (Occasional); Nitrite,Urine Negative (Negative); Protein,Urine >=500 MG/DL; RBC,Urine 1111 /HPF (0-4); Squamous Epithelial Cell,Urine Occasional /HPF (0-10); Urine Appearance CLOUDY (Clear); Urine Color Amber (Yellow); Urine Specific Gravity 1.018 (1.001-1.035); Urine Urobilinogen < 2.0 EU/DL (0.2-1.0)
[2020-09-30] MEDS: IPRATROPIUM 500 MCG/2.5 ML NEB RESP TX SCH ×4 (01:09→20:55)
[2020-09-30] MEDS: ENOXAPARIN 30 MG/0.3 ML SYRINGE SUBCUT SCH (03:00)
[2020-09-30] MEDS: NON-FORMULARY MEDICATION (Budesonide-Glycopyr-Formoterol [Breztri Aerosphere] 160-9-4.8 mc INH SCH ×3 (04:54→22:06)
[2020-09-30 05:35] LABS: Basophils % 0.6 % (0.0-0.8); Eosinophils # 0.1 10*3/uL (0.0-0.87); Eosinophils % 1.1 % (0.00-10.9); Hematocrit 36.4 VOL% (42.0-52.0); Immature Granulocytes % 2.1 %; Immature Granulocytes Absolute 0.13 #; Lymphocytes # 0.6 10*3/uL (1.4-4.0); Lymphocytes % 9.4 % (21.2-54.2); Mean Corpuscular HGB Conc 30.2 GM/DL (32-36); Mean Corpuscular Volume 88.6 FL (87-102); Mean Platelet Volume 11.6 FL (9.6-12.0); Monocytes % 14.1 % (1.7-12.7); Neutrophils % 72.7 % (38.7-73.9); Platelet Count 145 T/CUMM (130-400); Red Blood Count 4.11 MC/CUMM (3.8-5.5); Red Cell Distribution Width 15.9 % (9.3-17.3); White Blood Count 6.3 T/CUMM (4-12)
[2020-09-30 05:54] LABS: Calcium 8.6 MG/DL (8.5-10.1); Osmolality,Calculated 311.1 MOS/KG (273-304); Potassium 4.9 MMOL/L (3.5-5.1)
[2020-09-30] MEDS: DORNASE ALFA 2.5 MG/2.5 ML VIAL RESP TX SCH ×2 (07:26→20:55)
[2020-09-30] MEDS: levETIRAcetam 250 MG TABLET PO SCH ×2 (09:35→20:56)
[2020-09-30] MEDS: TAMSULOSIN 0.4 MG CAPSULE PO SCH (09:35)
[2020-09-30] MEDS: DULoxetine 30 MG CAPSULE PO SCH ×2 (09:35→20:56)
[2020-09-30] MEDS: MONTELUKAST 10 MG TABLET PO SCH (09:35)
[2020-09-30] MEDS: GABAPENTIN 300 MG CAPSULE PO SCH (09:35)
[2020-09-30] MEDS: methylPREDNISolone 4 MG TABLET PO SCH (09:35)
[2020-09-30] MEDS: MEROPENEM 500 MG in SODIUM CHLORIDE 0.9% 100 ML IV SCH (09:36)
[2020-09-30 16:31] LABS: Microalbum/Creat Ratio Random 5073.4 RATIO (0-30)
[2020-10-01] MEDS: IPRATROPIUM 500 MCG/2.5 ML NEB RESP TX SCH ×4 (00:47→17:57)
[2020-10-01] MEDS: ENOXAPARIN 30 MG/0.3 ML SYRINGE SUBCUT SCH (04:02)
[2020-10-01 04:51] LABS: Basophils % 0.5 % (0.0-0.8); Eosinophils # 0.1 10*3/uL (0.0-0.87); Eosinophils % 1.5 % (0.00-10.9); Hematocrit 38.5 VOL% (42.0-52.0); Hemoglobin 11.5 GM/DL (14.0-18.0); Immature Granulocytes % 4.5 %; Immature Granulocytes Absolute 0.35 #; Lymphocytes # 0.5 10*3/uL (1.4-4.0); Mean Corpuscular HGB Conc 29.9 GM/DL (32-36); Mean Corpuscular Volume 89.7 FL (87-102); Mean Platelet Volume 11.6 FL (9.6-12.0); Monocytes % 13.4 % (1.7-12.7); Neutrophils % 74.1 % (38.7-73.9); Platelet Count 150 T/CUMM (130-400); Red Blood Count 4.29 MC/CUMM (3.8-5.5); Red Cell Distribution Width 16.1 % (9.3-17.3); White Blood Count 7.9 T/CUMM (4-12)
[2020-10-01 05:16] LABS: Calcium 8.5 MG/DL (8.5-10.1); Osmolality,Calculated 311.4 MOS/KG (273-304); Potassium 4.8 MMOL/L (3.5-5.1)
[2020-10-01] MEDS: DORNASE ALFA 2.5 MG/2.5 ML VIAL RESP TX SCH ×2 (07:36→19:00)
[2020-10-01] MEDS: MONTELUKAST 10 MG TABLET PO SCH (09:11)
[2020-10-01] MEDS: levETIRAcetam 250 MG TABLET PO SCH (09:11)
[2020-10-01] MEDS: DULoxetine 30 MG CAPSULE PO SCH ×2 (09:11→21:30)
[2020-10-01] MEDS: TAMSULOSIN 0.4 MG CAPSULE PO SCH (09:11)
[2020-10-01] MEDS: NON-FORMULARY MEDICATION (Budesonide-Glycopyr-Formoterol [Breztri Aerosphere] 160-9-4.8 mc INH SCH ×2 (09:12→22:19)
[2020-10-01] MEDS: methylPREDNISolone 4 MG TABLET PO SCH (09:15)
[2020-10-02] MEDS: IPRATROPIUM 500 MCG/2.5 ML NEB RESP TX SCH ×4 (01:40→18:15)
[2020-10-02] MEDS: ENOXAPARIN 30 MG/0.3 ML SYRINGE SUBCUT SCH (02:52)
[2020-10-02 06:51] LABS: Basophils % 0.4 % (0.0-0.8); Eosinophils # 0.1 10*3/uL (0.0-0.87); Eosinophils % 1.1 % (0.00-10.9); Hemoglobin 11.6 GM/DL (14.0-18.0); Immature Granulocytes % 3.4 %; Immature Granulocytes Absolute 0.34 #; Lymphocytes # 0.8 10*3/uL (1.4-4.0); Lymphocytes % 8.3 % (21.2-54.2); Mean Corpuscular HGB Conc 30.5 GM/DL (32-36); Mean Platelet Volume 11.7 FL (9.6-12.0); Monocytes % 13.3 % (1.7-12.7); Neutrophils % 73.5 % (38.7-73.9); Platelet Count 139 T/CUMM (130-400); Red Blood Count 4.32 MC/CUMM (3.8-5.5); Red Cell Distribution Width 16.2 % (9.3-17.3)
[2020-10-02 07:21] LABS: Calcium 8.5 MG/DL (8.5-10.1); Osmolality,Calculated 316.4 MOS/KG (273-304); Potassium 4.9 MMOL/L (3.5-5.1)
[2020-10-02] MEDS: DORNASE ALFA 2.5 MG/2.5 ML VIAL RESP TX SCH ×2 (07:34→18:15)
[2020-10-02] MEDS ORDERED: LIDOCAINE 2% VISCOUS 100 ML BOTTLE SWISH/SPIT ONE (08:51)
[2020-10-02] MEDS ORDERED: LIDOCAINE 2% 20 ML VIAL RESP TX ONE (08:51)
[2020-10-02] MEDS ORDERED: LIDOCAINE 1% 20 ML VIAL MISC INJ ONE (08:51)
[2020-10-02] MEDS: DULoxetine 30 MG CAPSULE PO SCH ×3 (09:08→21:46)
[2020-10-02] MEDS: NON-FORMULARY MEDICATION (Budesonide-Glycopyr-Formoterol [Breztri Aerosphere] 160-9-4.8 mc INH SCH ×2 (09:08→21:46)
[2020-10-02] MEDS: TAMSULOSIN 0.4 MG CAPSULE PO SCH ×2 (09:09→11:58)
[2020-10-02] MEDS: methylPREDNISolone 4 MG TABLET PO SCH (09:09)
[2020-10-02] MEDS: levETIRAcetam 250 MG TABLET PO SCH ×2 (09:09→11:59)
[2020-10-02] MEDS: predniSONE 20 MG TABLET PO SCH (11:59)
[2020-10-02 12:55] LABS: INR 1.1; PT Patient Result 12.1 SECS (10.5-12.0)
[2020-10-02 16:41] LABS: Glomerular Basement Membrane A < 0.2 U; Myeloperoxidase Antibody < 0.2 U
[2020-10-03] MEDS: IPRATROPIUM 500 MCG/2.5 ML NEB RESP TX SCH ×4 (01:48→19:55)
[2020-10-03] MEDS: ENOXAPARIN 30 MG/0.3 ML SYRINGE SUBCUT SCH (03:00)
[2020-10-03 06:40] LABS: Calcium 8.5 MG/DL (8.5-10.1); Osmolality,Calculated 317.5 MOS/KG (273-304); Potassium 5.6 MMOL/L (3.5-5.1)
[2020-10-03 06:41] LABS: Basophils % 0.3 % (0.0-0.8); Hematocrit 37.6 VOL% (42.0-52.0); Hemoglobin 11.6 GM/DL (14.0-18.0); Immature Granulocytes % 4.1 %; Lymphocytes # 0.5 10*3/uL (1.4-4.0); Lymphocytes % 6.6 % (21.2-54.2); Mean Corpuscular HGB Conc 30.9 GM/DL (32-36); Mean Corpuscular Volume 89.1 FL (87-102); Mean Platelet Volume 12.2 FL (9.6-12.0); Monocytes % 5.5 % (1.7-12.7); Neutrophils % 83.5 % (38.7-73.9); Platelet Count 130 T/CUMM (130-400); Red Blood Count 4.22 MC/CUMM (3.8-5.5); White Blood Count 7.3 T/CUMM (4-12)
[2020-10-03] MEDS: DORNASE ALFA 2.5 MG/2.5 ML VIAL RESP TX SCH ×2 (07:27→19:55)
[2020-10-03] MEDS: predniSONE 20 MG TABLET PO SCH (10:03)
[2020-10-03] MEDS: TAMSULOSIN 0.4 MG CAPSULE PO SCH (10:03)
[2020-10-03] MEDS: DULoxetine 30 MG CAPSULE PO SCH ×2 (10:04→21:51)
[2020-10-03] MEDS ORDERED: SODIUM POLYSTYRENE SULFATE 15 GM/60 ML BOTTLE PO PRN (13:13)
[2020-10-03 14:06] LABS: Antinuclear Ab, S > 12.0 U
[2020-10-03] MEDS: NON-FORMULARY MEDICATION (Budesonide-Glycopyr-Formoterol [Breztri Aerosphere] 160-9-4.8 mc INH SCH ×2 (16:55→21:51)
[2020-10-04] MEDS: IPRATROPIUM 500 MCG/2.5 ML NEB RESP TX SCH ×4 (00:24→19:47)
[2020-10-04] MEDS: ENOXAPARIN 30 MG/0.3 ML SYRINGE SUBCUT SCH (03:28)
[2020-10-04 06:11] LABS: Basophils % 0.2 % (0.0-0.8); Hemoglobin 11.9 GM/DL (14.0-18.0); Immature Granulocytes % 2.2 %; Immature Granulocytes Absolute 0.28 #; Lymphocytes # 0.5 10*3/uL (1.4-4.0); Lymphocytes % 3.9 % (21.2-54.2); Mean Corpuscular HGB Conc 30.5 GM/DL (32-36); Mean Corpuscular Volume 90.1 FL (87-102); Mean Platelet Volume 11.8 FL (9.6-12.0); Neutrophils % 82.7 % (38.7-73.9); Platelet Count 127 T/CUMM (130-400); Red Blood Count 4.33 MC/CUMM (3.8-5.5); Red Cell Distribution Width 16.5 % (9.3-17.3)
[2020-10-04] MEDS: DORNASE ALFA 2.5 MG/2.5 ML VIAL RESP TX SCH ×2 (07:57→19:55)
[2020-10-04] MEDS: NON-FORMULARY MEDICATION (Budesonide-Glycopyr-Formoterol [Breztri Aerosphere] 160-9-4.8 mc INH SCH ×2 (09:00→22:09)
[2020-10-04 09:06] LABS: Anisocytosis 1+; Band Neutrophils 5 % (0-10); Burr Cells Few; Lymphocytes 5 % (20-55); Macrocytosis Slight; Ovalocytes Few; Platelet Estimate Adequate; Segmented Neutrophils 79 % (50-85); Total Cells Counted 100
[2020-10-04] MEDS: predniSONE 20 MG TABLET PO SCH (09:50)
[2020-10-04] MEDS: DULoxetine 30 MG CAPSULE PO SCH ×2 (09:50→22:10)
[2020-10-04] MEDS: TAMSULOSIN 0.4 MG CAPSULE PO SCH (09:50)
[2020-10-04 10:59] LABS: Calcium 8.4 MG/DL (8.5-10.1); Osmolality,Calculated 313.2 MOS/KG (273-304)
[2020-10-04] MEDS: SODIUM BICARB INJ 150 MEQ in STERILE WATER INJ 850 ML IV SCH (15:22)
[2020-10-05] MEDS: IPRATROPIUM 500 MCG/2.5 ML NEB RESP TX SCH ×4 (00:38→19:11)
[2020-10-05] MEDS: SODIUM BICARB INJ 150 MEQ in STERILE WATER INJ 850 ML IV SCH (06:49)
[2020-10-05 07:25] LABS: Osmolality,Calculated 328.4 MOS/KG (273-304); Potassium 5.3 MMOL/L (3.5-5.1)
[2020-10-05] MEDS: DORNASE ALFA 2.5 MG/2.5 ML VIAL RESP TX SCH ×2 (07:54→19:11)
[2020-10-05] MEDS: DULoxetine 30 MG CAPSULE PO SCH ×2 (08:26→20:45)
[2020-10-05] MEDS: ERGOCALCIFEROL 50,000 UNIT CAPSULE PO SCH (08:26)
[2020-10-05] MEDS: TAMSULOSIN 0.4 MG CAPSULE PO SCH (08:27)
[2020-10-05] MEDS: predniSONE 20 MG TABLET PO SCH (08:27)
[2020-10-05] MEDS: NON-FORMULARY MEDICATION (Budesonide-Glycopyr-Formoterol [Breztri Aerosphere] 160-9-4.8 mc INH SCH ×2 (09:56→21:00)
[2020-10-05] MEDS: SODIUM BICARBONATE 650 MG TABLET PO SCH ×2 (11:57→20:45)
[2020-10-06] MEDS: IPRATROPIUM 500 MCG/2.5 ML NEB RESP TX SCH ×4 (00:15→19:35)
[2020-10-06 05:50] LABS: Basophils % 0.1 % (0.0-0.8); Hematocrit 35.2 VOL% (42.0-52.0); Hemoglobin 11.1 GM/DL (14.0-18.0); Immature Granulocytes % 1.8 %; Immature Granulocytes Absolute 0.19 #; Lymphocytes # 0.4 10*3/uL (1.4-4.0); Lymphocytes % 3.7 % (21.2-54.2); Mean Corpuscular HGB Conc 31.5 GM/DL (32-36); Mean Corpuscular Volume 86.1 FL (87-102); Mean Platelet Volume 11.6 FL (9.6-12.0); Monocytes % 10.2 % (1.7-12.7); Neutrophils % 84.2 % (38.7-73.9); Platelet Count 146 T/CUMM (130-400); Red Blood Count 4.09 MC/CUMM (3.8-5.5); Red Cell Distribution Width 16.7 % (9.3-17.3); White Blood Count 10.7 T/CUMM (4-12)
[2020-10-06 06:09] LABS: Band Neutrophils 1 % (0-10); Lymphocytes 4 % (20-55); Platelet Estimate Adequate; Segmented Neutrophils 83 % (50-85); Total Cells Counted 100
[2020-10-06 06:10] LABS: Ovalocytes Slight
[2020-10-06 06:35] LABS: Calcium 7.7 MG/DL (8.5-10.1); Osmolality,Calculated 334.3 MOS/KG (273-304); Potassium 5.3 MMOL/L (3.5-5.1)
[2020-10-06] MEDS ORDERED: ALBUTEROL/IPRATROPIUM 3 ML NEB RESP TX ONE (07:26)
[2020-10-06] MEDS ORDERED: HEPARIN 5,000 UNIT/1 ML VIAL ONE (07:49)
[2020-10-06] MEDS ORDERED: LIDOCAINE 2% 5 ML VIAL ONE (07:49)
[2020-10-06] MEDS ORDERED: SODIUM CHLORIDE 0.9% 100 ML IV ONE (07:49)
[2020-10-06] MEDS ORDERED: DEXMEDETOMIDINE 200 MCG/2 ML VIAL ONE (07:49)
[2020-10-06] MEDS ORDERED: propofoL 200 MG/20 ML VIAL IV ONE (07:49)
[2020-10-06] MEDS ORDERED: BUPIVACAINE MPF 0.25% 30 ML VIAL ONE (07:49)
[2020-10-06] MEDS ORDERED: LIDOCAINE 1%/EPI INJ 20 ML VIAL ONE (07:49)
[2020-10-06] MEDS ORDERED: fentaNYL 100 MCG/2 ML VIAL ONE (08:00)
[2020-10-06] MEDS: DORNASE ALFA 2.5 MG/2.5 ML VIAL RESP TX SCH ×2 (08:00→19:35)
[2020-10-06] MEDS ORDERED: DIAZEPAM 5 MG TABLET PO ONE (08:00)
[2020-10-06] MEDS ORDERED: SODIUM CHLORIDE 0.9% 250 ML IV SCH (08:30)
[2020-10-06] MEDS ORDERED: TISSUE ADHESIVE 1 EACH APPLICATOR TOP ONE (08:56)
[2020-10-06] MEDS: NON-FORMULARY MEDICATION (Budesonide-Glycopyr-Formoterol [Breztri Aerosphere] 160-9-4.8 mc INH SCH ×2 (11:05→22:26)
[2020-10-06] MEDS: SODIUM BICARBONATE 650 MG TABLET PO SCH (11:07)
[2020-10-06] MEDS: TAMSULOSIN 0.4 MG CAPSULE PO SCH (11:30)
[2020-10-06] MEDS: DULoxetine 30 MG CAPSULE PO SCH ×2 (11:30→21:18)
[2020-10-06] MEDS: predniSONE 20 MG TABLET PO SCH (11:31)
[2020-10-06 13:39] LABS: Hepatitis B Core IgM Quant 0.07 Index; Hepatitis B Surface Ag Quant < 0.10 Index; Hepatitis B Surface Ag Result Non-Reactive (NonReactive); Hepatitis C Virus Ab Quant 0.12 Index; Hepatitis C Virus Ab Result Non-Reactive (NonReactive)
[2020-10-06] MEDS ORDERED: HEPARIN 10,000 UNIT/10 ML VIAL IV SCH (14:15)
[2020-10-07] MEDS: IPRATROPIUM 500 MCG/2.5 ML NEB RESP TX SCH ×4 (00:39→19:25)
[2020-10-07 06:19] LABS: Calcium 7.7 MG/DL (8.5-10.1); Osmolality,Calculated 319.4 MOS/KG (273-304); Potassium 5.3 MMOL/L (3.5-5.1)
[2020-10-07 06:30] LABS: Basophils % 0.2 % (0.0-0.8); Hematocrit 37.2 VOL% (42.0-52.0); Hemoglobin 12.1 GM/DL (14.0-18.0); Immature Granulocytes % 2.1 %; Immature Granulocytes Absolute 0.25 #; Lymphocytes # 0.4 10*3/uL (1.4-4.0); Lymphocytes % 3.2 % (21.2-54.2); Mean Corpuscular HGB Conc 32.5 GM/DL (32-36); Mean Corpuscular Volume 85.1 FL (87-102); Mean Platelet Volume 13.1 FL (9.6-12.0); Monocytes % 11.5 % (1.7-12.7); Platelet Count 103 T/CUMM (130-400); Red Blood Count 4.37 MC/CUMM (3.8-5.5); Red Cell Distribution Width 17.2 % (9.3-17.3)
[2020-10-07 06:41] LABS: Lymphocytes 3 % (20-55); Segmented Neutrophils 86 % (50-85); Total Cells Counted 100
[2020-10-07 06:42] LABS: Acanthocytes Few; Hypochromasia 1+; Microcytosis 1+; Ovalocytes Few
[2020-10-07 06:43] LABS: Platelet Estimate Decreased
[2020-10-07] MEDS: DORNASE ALFA 2.5 MG/2.5 ML VIAL RESP TX SCH (07:47)
[2020-10-07] MEDS: predniSONE 20 MG TABLET PO SCH (08:56)
[2020-10-07] MEDS: TAMSULOSIN 0.4 MG CAPSULE PO SCH (08:56)
[2020-10-07] MEDS: DULoxetine 30 MG CAPSULE PO SCH ×2 (08:56→21:12)
[2020-10-07] MEDS: NON-FORMULARY MEDICATION (Budesonide-Glycopyr-Formoterol [Breztri Aerosphere] 160-9-4.8 mc INH SCH ×2 (09:00→22:23)
[2020-10-08] MEDS: IPRATROPIUM 500 MCG/2.5 ML NEB RESP TX SCH ×4 (01:00→19:18)
[2020-10-08] MEDS: DORNASE ALFA 2.5 MG/2.5 ML VIAL RESP TX SCH ×3 (01:06→19:26)
[2020-10-08 05:21] LABS: Basophils % 0.1 % (0.0-0.8); Hematocrit 34.9 VOL% (42.0-52.0); Hemoglobin 10.7 GM/DL (14.0-18.0); Immature Granulocytes % 1.9 %; Immature Granulocytes Absolute 0.25 #; Lymphocytes # 0.5 10*3/uL (1.4-4.0); Lymphocytes % 3.8 % (21.2-54.2); Mean Corpuscular HGB Conc 30.7 GM/DL (32-36); Mean Corpuscular Volume 86.8 FL (87-102); Mean Platelet Volume 12.4 FL (9.6-12.0); Monocytes % 9.7 % (1.7-12.7); Neutrophils % 84.5 % (38.7-73.9); Platelet Count 134 T/CUMM (130-400); Red Blood Count 4.02 MC/CUMM (3.8-5.5); Red Cell Distribution Width 16.9 % (9.3-17.3); White Blood Count 13.5 T/CUMM (4-12)
[2020-10-08 05:46] LABS: Lymphocytes 5 % (20-55); Platelet Estimate Adequate; Segmented Neutrophils 83 % (50-85); Total Cells Counted 100
[2020-10-08 05:47] LABS: Hypochromasia 1+; Microcytosis 1+
[2020-10-08 05:51] LABS: Calcium 7.8 MG/DL (8.5-10.1); Osmolality,Calculated 327.1 MOS/KG (273-304)
[2020-10-08] MEDS: predniSONE 20 MG TABLET PO SCH (13:18)
[2020-10-08] MEDS: TAMSULOSIN 0.4 MG CAPSULE PO SCH (13:18)
[2020-10-08] MEDS: DULoxetine 30 MG CAPSULE PO SCH ×2 (13:18→20:27)
[2020-10-08] MEDS: NON-FORMULARY MEDICATION (Budesonide-Glycopyr-Formoterol [Breztri Aerosphere] 160-9-4.8 mc INH SCH ×2 (16:31→20:27)
[2020-10-09] MEDS: IPRATROPIUM 500 MCG/2.5 ML NEB RESP TX SCH ×4 (00:12→20:43)
[2020-10-09] MEDS: DORNASE ALFA 2.5 MG/2.5 ML VIAL RESP TX SCH ×2 (07:09→20:43)
[2020-10-09 07:12] LABS: Calcium 7.9 MG/DL (8.5-10.1); Osmolality,Calculated 308.5 MOS/KG (273-304); Potassium 4.6 MMOL/L (3.5-5.1)
[2020-10-09 09:33] LABS: Albumin (SPE) 3.1 G/DL (3.2-5.3); Albumin (SPE) Rel % 51.8 %; Alpha 1 (SPE) 0.3 G/DL (0.1-0.4); Alpha 1 (SPE) Rel % 4.6 %; Alpha 2 (SPE) 0.8 G/DL (0.4-1.0); Alpha 2 (SPE) Rel % 13.8 %; Beta (SPE) 0.5 G/DL (0.5-1.1); Gamma (SPE) 1.2 G/DL (0.7-1.7); Gamma (SPE) Rel % 20.8 %
[2020-10-09 11:25] LABS: Anti SS-A Antibodies < 16 EU/ML
[2020-10-09] MEDS ORDERED: DEXAMETHASONE INJ 10 MG in SODIUM CHLORIDE 0.9% 50 ML IV ONE ×2 (12:45→13:00)
[2020-10-09] MEDS ORDERED: CYCLOPHOSPHAMIDE IV ONE (14:00)
[2020-10-09] MEDS ORDERED: SODIUM CHLORIDE 0.9% IV ONE (14:00)
[2020-10-09] MEDS: DULoxetine 30 MG CAPSULE PO SCH ×2 (14:09→20:57)
[2020-10-09] MEDS: ONDANSETRON 4 MG/2 ML VIAL IV SCH ×4 (14:09→23:02)
[2020-10-09] MEDS: TAMSULOSIN 0.4 MG CAPSULE PO SCH (14:09)
[2020-10-09] MEDS: NON-FORMULARY MEDICATION (Budesonide-Glycopyr-Formoterol [Breztri Aerosphere] 160-9-4.8 mc INH SCH ×2 (14:22→20:56)
[2020-10-09] MEDS: predniSONE 20 MG TABLET PO SCH (14:37)
[2020-10-09] MEDS: MESNA IV SCH ×3 (14:51→20:57)
[2020-10-09] MEDS: SODIUM CHLORIDE 0.9% IV SCH ×3 (14:51→20:57)
[2020-10-09] MEDS: methylPREDNISolone SOD SUC INJ 1,000 MG in SODIUM CHLORIDE 0.9% 100 ML IV SCH (17:40)
[2020-10-10] MEDS: IPRATROPIUM 500 MCG/2.5 ML NEB RESP TX SCH ×3 (01:15→14:33)
[2020-10-10] MEDS: DORNASE ALFA 2.5 MG/2.5 ML VIAL RESP TX SCH (07:37)
[2020-10-10] MEDS: NON-FORMULARY MEDICATION (Budesonide-Glycopyr-Formoterol [Breztri Aerosphere] 160-9-4.8 mc INH SCH (08:49)
[2020-10-10] MEDS: TAMSULOSIN 0.4 MG CAPSULE PO SCH (08:54)
[2020-10-10] MEDS: DULoxetine 30 MG CAPSULE PO SCH (08:55)
[2020-10-10] MEDS: methylPREDNISolone SOD SUC INJ 1,000 MG in SODIUM CHLORIDE 0.9% 100 ML IV SCH (14:11)
[2020-10-10 16:43] VITALS: BP 119/61
== END 2020-10-10 18:11 | DRG 871 ==
LOC: EDBD → EDUNIT# → N.EDINP 22:25 → N.ED 22:25 → SUATTDRO 09-21 01:17 → N.EDINP 09-21 02:05 → N.TELEN 09-21 02:20
PROVIDERS: ADMIT Emergency Medicine; ATTEND Internal Medicine

== ENCOUNTER 2020-11-05 12:51 | Inpatient (IN) ==
[2020-11-05] MEDS ORDERED: SODIUM CHLORIDE 0.9% 1,000 ML IV STA (13:11)
[2020-11-05 14:03] LABS: ABG Base Excess -12.4 MMOL/L (-2.5-2.5); ABG HCO3 14.5 MMOL/L (20-26); ABG Oxygen Saturation 80.6 % (95-100); ABG PCO2 45.4 MM HG (35-48); ABG PO2 58.6 MM HG (80-95); ABG TCO2 15.3 MMOL/L (23-27); Allen Test Positive
[2020-11-05 14:07] LABS: ABG PH 7.154 (7.35-7.45)
[2020-11-05 14:55] LABS: Alanine Aminotransferase 72 U/L (16-61); Albumin 2.5 G/DL (3.4-5.0); Alkaline Phosphatase 110 U/L (45-117); Aspartate Amino Transferase 58 U/L (0-37); Blood Urea Nitrogen 93 MG/DL (7-18); Calcium 7.8 MG/DL (8.5-10.1); Carbon Dioxide 18 MMOL/L (21-32); Estimated Glom Filtration Rate 20 ML/MIN; Glucose 91 MG/DL (74-106); Osmolality,Calculated 316.7 MOS/KG (273-304); Potassium 5.2 MMOL/L (3.5-5.1); Sodium 145 MMOL/L (136-145); Total Protein 5.1 G/DL (6.4-8.2)
[2020-11-05 15:07] LABS: Basophils % 0.1 % (0.0-0.8); Hematocrit 30.9 VOL% (42.0-52.0); Hemoglobin 9.1 GM/DL (14.0-18.0); Immature Granulocytes Absolute 0.09 #; Lymphocytes # 0.4 10*3/uL (1.4-4.0); Mean Corpuscular HGB Conc 29.4 GM/DL (32-36); Mean Corpuscular Volume 92.5 FL (87-102); Mean Platelet Volume 12.1 FL (9.6-12.0); Monocytes % 5.2 % (1.7-12.7); NRBC # 0.02 10*3/uL; Neutrophils % 88.7 % (38.7-73.9); Platelet Count 119 T/CUMM (130-400); Red Blood Count 3.34 MC/CUMM (3.8-5.5); Red Cell Distribution Width 19.2 % (9.3-17.3); White Blood Count 8.7 T/CUMM (4-12)
[2020-11-05] MEDS ORDERED: SODIUM CHLORIDE 0.9% 2,650 ML IV ONE (15:29)
[2020-11-05] MEDS ORDERED: LEVOFLOXACIN INJ 750 MG/150 ML PREMIX IV ONE (15:30)
[2020-11-05 15:34] LABS: Lymphocytes 5 % (20-55); Nucleated Red Blood Cells 1 (0-5); Segmented Neutrophils 93 % (50-85); Total Cells Counted 100
[2020-11-05 15:35] LABS: Platelet Estimate Adequate
[2020-11-05 15:36] LABS: Anisocytosis Slight; Hypochromasia Slight
[2020-11-05] MEDS ORDERED: HYDROCORTISONE 100 MG VIAL IV STA (15:57)
[2020-11-05] MEDS ORDERED: VANCOMYCIN INJ 1,250 MG in SODIUM CHLORIDE 0.9% 250 ML IV STA (16:06)
[2020-11-05 16:13] LABS: Bilirubin,Urine Negative (Negative); Blood, Urine Large mg/dL (Negative); Glucose,Urine (UA) 50 mg/dL (Negative); Ketones,Urine Negative (Negative); Mucus,Urine Occasional /LPF (Occasional); Nitrite,Urine Negative (Negative); Protein,Urine 100 MG/DL; RBC,Urine 327 /HPF (0-4); Squamous Epithelial Cell,Urine Occasional /HPF (0-10); Urine Appearance Slightly Hazy (Clear); Urine Color Yellow (Yellow); Urine Specific Gravity 1.012 (1.001-1.035); Urine Urobilinogen < 2.0 EU/DL (0.2-1.0)
[2020-11-05] MEDS ORDERED: MORPHINE 4 MG/1 ML VIAL IV STA (16:35)
[2020-11-05] MEDS ORDERED: FUROSEMIDE 40 MG/4 ML VIAL IV STA (16:36)
[2020-11-05] MEDS ORDERED: ALBUTEROL 2.5 MG/3 ML NEB RESP TX PRN (16:53)
[2020-11-05] MEDS ORDERED: ONDANSETRON 4 MG/2 ML VIAL IV PRN (16:54)
[2020-11-05] MEDS ORDERED: VANCOMYCIN INJ 1,250 MG in SODIUM CHLORIDE 0.9% 250 ML IV PRN (16:59)
[2020-11-05] MEDS ORDERED: NOREPINEPHRINE 4 MG/4 ML VIAL IV ONE (17:29)
[2020-11-05] MEDS: NOREPINEPHRINE 8 MG in SODIUM CHLORIDE 0.9% 242 ML IV PRN (17:50)
[2020-11-05 18:00] VITALS: BP 80/40
[2020-11-05] MEDS: PANTOPRAZOLE 40 MG VIAL IV SCH (18:03)
[2020-11-05] MEDS: PIPERACILLIN/TAZOBACTAM 3,375 MG in SODIUM CHLORIDE 0.9% 100 ML IV SCH (19:16)
[2020-11-05] MEDS ORDERED: VANCOMYCIN INJ 2,000 MG in SODIUM CHLORIDE 0.9% 500 ML IV ONE (20:00)
[2020-11-05] MEDS: HYDROCORTISONE 100 MG VIAL IV SCH (20:19)
[2020-11-05] MEDS: MORPHINE 4 MG/1 ML VIAL IV PRN (20:21)
[2020-11-06] MEDS: NOREPINEPHRINE 8 MG in SODIUM CHLORIDE 0.9% 242 ML IV PRN ×4 (02:08→19:00)
[2020-11-06] MEDS: MORPHINE 4 MG/1 ML VIAL IV PRN ×2 (02:50→20:57)
[2020-11-06] MEDS: PIPERACILLIN/TAZOBACTAM 3,375 MG in SODIUM CHLORIDE 0.9% 100 ML IV SCH ×2 (03:00→14:56)
[2020-11-06] MEDS: HYDROCORTISONE 100 MG VIAL IV SCH ×3 (05:46→20:57)
[2020-11-06 06:49] LABS: Albumin 2.2 G/DL (3.4-5.0); Osmolality,Calculated 317.7 MOS/KG (273-304); Potassium 5.8 MMOL/L (3.5-5.1); Total Protein 5.2 G/DL (6.4-8.2)
[2020-11-06 06:56] LABS: Basophils % 0.1 % (0.0-0.8); Hematocrit 29.8 VOL% (42.0-52.0); Hemoglobin 8.8 GM/DL (14.0-18.0); Immature Granulocytes % 0.5 %; Immature Granulocytes Absolute 0.05 #; Lymphocytes # 0.4 10*3/uL (1.4-4.0); Lymphocytes % 4.1 % (21.2-54.2); Mean Corpuscular HGB Conc 29.5 GM/DL (32-36); Mean Corpuscular Volume 94.6 FL (87-102); Mean Platelet Volume 11.8 FL (9.6-12.0); NRBC # 0.02 10*3/uL; Neutrophils % 91.3 % (38.7-73.9); Platelet Count 117 T/CUMM (130-400); Red Blood Count 3.15 MC/CUMM (3.8-5.5); White Blood Count 9.3 T/CUMM (4-12)
[2020-11-06 07:17] LABS: Band Neutrophils 7 % (0-10); Lymphocytes 4 % (20-55); Segmented Neutrophils 85 % (50-85); Total Cells Counted 100
[2020-11-06 07:18] LABS: Hypochromasia Slight; Microcytosis Slight
[2020-11-06] MEDS: PANTOPRAZOLE 40 MG VIAL IV SCH (18:17)
[2020-11-07] MEDS: NOREPINEPHRINE 16 MG in SODIUM CHLORIDE 0.9% 234 ML IV PRN ×2 (00:25→07:52)
[2020-11-07] MEDS: HYDROCORTISONE 100 MG VIAL IV SCH (04:17)
[2020-11-07] MEDS: PIPERACILLIN/TAZOBACTAM 3,375 MG in SODIUM CHLORIDE 0.9% 100 ML IV SCH (04:17)
[2020-11-07 04:27] LABS: ABG Base Excess -17.3 MMOL/L (-2.5-2.5); ABG HCO3 11.2 MMOL/L (20-26); ABG Oxygen Saturation 84.4 % (95-100); ABG PCO2 56.2 MM HG (35-48); ABG PO2 64.2 MM HG (80-95); ABG TCO2 13.8 MMOL/L (23-27); Allen Test Positive; Pt O2 Delivery Device Other
[2020-11-07] MEDS ORDERED: SODIUM BICARBONATE 50 MEQ/50 ML VIAL IV ONE (04:43)
[2020-11-07 06:32] LABS: Basophils % 0.6 % (0.0-0.8); Hematocrit 32.1 VOL% (42.0-52.0); Hemoglobin 9.6 GM/DL (14.0-18.0); Immature Granulocytes % 0.8 %; Immature Granulocytes Absolute 0.04 #; Lymphocytes # 0.1 10*3/uL (1.4-4.0); Lymphocytes % 2.4 % (21.2-54.2); Mean Corpuscular HGB Conc 29.9 GM/DL (32-36); Mean Corpuscular Volume 94.1 FL (87-102); NRBC # 0.14 10*3/uL; Neutrophils % 93.2 % (38.7-73.9); Platelet Count 116 T/CUMM (130-400); Red Blood Count 3.41 MC/CUMM (3.8-5.5); Red Cell Distribution Width 19.2 % (9.3-17.3)
[2020-11-07 06:36] LABS: Band Neutrophils 8 % (0-10); Burr Cells Slight; Hypochromasia 1+; Lymphocytes 4 % (20-55); Nucleated Red Blood Cells 1 (0-5); Ovalocytes Slight; Platelet Estimate Decreased; Segmented Neutrophils 82 % (50-85); Total Cells Counted 100
[2020-11-07 06:37] LABS: Microcytosis Slight
[2020-11-07 06:54] LABS: Albumin 2.2 G/DL (3.4-5.0); Bilirubin,Total 1.4 MG/DL (0.2-1.0); Calcium 8.2 MG/DL (8.5-10.1); Osmolality,Calculated 324.7 MOS/KG (273-304); Total Protein 5.4 G/DL (6.4-8.2)
[2020-11-07 06:57] LABS: Potassium 6.5 MMOL/L (3.5-5.1)
[2020-11-07] MEDS ORDERED: LEVOFLOXACIN INJ 500 MG/100 ML PREMIX IV SCH (16:00)
== END 2020-11-07 12:12 | disposition expired | DRG 871 ==
LOC: EDUNIT# → EDBD → N.ED 12:51 → N.EDINP 15:58 → N.CC 17:50
PROVIDERS: ADMIT Internal Medicine; ATTEND Internal Medicine